=== PATIENT | female | born 1950 | race Caucasian/White ===

== ENCOUNTER → 2016-12-03 | Outpatient (CLI) | payer OTHER | LOC: BMCIMAGING 10:58 | PROVIDERS: ATTEND Family Medicine | DX: M11.251 Other chondrocalcinosis, right hip (principal); M11.252 Other chondrocalcinosis, left hip; M16.0 Bilateral primary osteoarthritis of hip; N20.0 Calculus of kidney ==

== ENCOUNTER 2017-02-24 18:06 | Emergency (ER) | payer OTHER ==
[2017-02-24 18:28] VITALS: BP 140/87; PULSE 69; RESP 18; TEMP 98.2; O2SAT 93
--- NOTE | 2017-02-24 19:12 | EDPHY ---
H & P Time Seen by Provider: 02/24/17 18:42 HPI/ROS: CHIEF COMPLAINT: Blood in urine on Friday HISTORY OF PRESENT ILLNESS: This 66-year-old woman was diagnosed with kidney stones 4 months ago in [place]. She had ultrasound and was told there were additional 3 or 4 stones in her left kidney. When she returned home she had repeat ultrasound and evaluation by her primary care physician Charles Juarez. This past Friday night she had several episodes of blood in her urine with some back pain. More on the left than the right. She presents concerned about possibility of kidney stone or urinary tract infection. She does have also some ongoing back pain which is a bit worse with movement. In review of systems she was using Voltaren gel for arthritis twice a day for the last 3 months but stopped today. She also had vaginal spotting a couple of months ago and then possibly this last . REVIEW OF SYSTEMS: Eye: no change in vision ENT: no sore throat Cardiac: No chest pain Pulmonary: no cough or SOB Abdomen: No vomiting or diarrhea Musculoskeletal: HPI Skin: no rash or easy bruising Neuro: No weakness or numbness in extremities. Constitutional: no fever : HPI A comprehensive 10 point review of systems is otherwise negative aside from elements mentioned in the history of present illness. PAST MEDICAL HISTORY: Kidney stones as noted above. Arthritis. Back pain. Social history: Lives part of the year in [place]. General Appearance: Alert and conversant, cooperative. Ambulatory. Eyes: No scleral icterus. ENT, Mouth: Normal mucous membranes. Respiratory: Normal respiratory effort, breath sounds equal, lungs are clear to auscultation. Cardiovascular: Regular rate and rhythm. Gastrointestinal: Abdomen is soft and non tender. No pulsatile mass. Neurological: Alert and oriented x3. Normally conversant. Face symmetric, normal movement and sensation in all extremities. Not ataxic. Patellar reflexes 2+ symmetric, no clonus. Skin: Warm and dry, no rashes. Musculoskeletal: Mild paraspinal muscle tenderness more on the left than the right in the lumbar region. Psychiatric: Not agitated. Emergency Department course/MDM: I emphasized to the patient with her vaginal spotting at 66 years old she needs to have an endometrial biopsy with her area supervisor Dr. Romero. It is not a procedure I can perform in the emergency department and cannot give her an answer to the question about endometrial cancer tonight. With her hematuria on Friday and normal urine dip here today it is possible that she passed 1 of her 3 or 4 remaining kidney stones on Friday. She does not have evidence of hematuria or infection tonight on her urine dip. We discussed pros and cons of emergency department CT scanning, patient declined imaging. She will follow up with Dr. Juarez her primary care provider within the next 2- 3 weeks for these symptoms and further evaluation. She will call her area supervisor tomorrow to schedule the above procedure this week. Smoking Status: Former smoker Constitutional: Initial Vital Signs Temperature (C) 36.8 C 02/24/17 18:23 Heart Rate 69 02/24/17 18:23 Respiratory Rate 18 02/24/17 18:23 Blood Pressure 140/87 H 02/24/17 18:23 O2 Sat (%) 93 02/24/17 18:23 O2 Delivery Mode Room Air Allergies/Adverse Reactions: No Known Allergies Allergy (Unverified 02/24/17 18:28) Home Medications: Medication Instructions Recorded Diclofenac Sodium [Voltaren Gel 1 katherine TP 02/24/17 (*)] Naproxen Sodium [Aleve 220 MG (*)] 220 mg PO 02/24/17 MDM/Departure - Depart Disposition: Home, Routine, Self-Care Clinical Impression: Vaginal spotting Condition: Good Instructions: Kidney Stones (ED) Additional Instructions: No bladder infection on testing of your urine today. No blood seen on testing of your urine today. Please call doctor Chantal tomorrow and schedule appointment for endometrial biopsy/. Referrals: CHARLES JUAREZ [Primary Care Provider] - As per Instructions RAFAT ROMERO [Retired Resigned] - As per Instructions
== END 2017-02-24 19:15 | disposition home or self-care (01) ==
DX: N93.9 Abnormal uterine and vaginal bleeding, unspecified (principal); Z87.891 Personal history of nicotine dependence

== ENCOUNTER → 2017-08-04 | Outpatient (CLI) | payer OTHER | LOC: BMCIMAGING 12:58 | PROVIDERS: ATTEND Family Medicine | DX: Z12.31 Encounter for screening mammogram for malignant neoplasm of breast (principal) | CPT/HCPCS: G0202 ==

== ENCOUNTER → 2018-02-11 | Outpatient (CLI) | payer OTHER | LOC: BMCIMAGING 13:29 | PROVIDERS: ATTEND Family Medicine | DX: R22.2 Localized swelling, mass and lump, trunk (principal) ==

== ENCOUNTER → 2018-08-13 | Outpatient (CLI) | payer OTHER | LOC: BMCIMAGING 13:18 | PROVIDERS: ATTEND Family Medicine | DX: Z12.31 Encounter for screening mammogram for malignant neoplasm of breast (principal) ==

== ENCOUNTER 2019-02-28 17:00 | Emergency (ER) | payer OTHER ==
--- NOTE | 2019-02-28 17:11 | EDPHY ---
H & P Stated Complaint: dizzy episode today while at work Time Seen by Provider: 02/28/19 17:10 HPI/ROS: CHIEF COMPLAINT: Dizzy HISTORY OF PRESENT ILLNESS: This 68-year-old female in general good health presents concerned about an episode of dizziness that occurred about 2 hr ago. She was at work when she began to feel dizzy and lightheaded. She states that it felt as if her head was "vibrating". This lasted a matter of seconds and resolved. However then she then felt weak. She had to sit down, which is unusual for her. She did not faint or lose consciousness. She feels extremely thirsty and has been drinking water (of note, she ate salty chips and salsa earlier). She went from work to [facility] where she was referred to the emergency department. She expresses concern about her blood pressure, which is higher than usual for her. She has no history of hypertension. REVIEW OF SYSTEMS: A ten system review of systems was performed and is negative with the exception of the items mentioned in the HPI. Past medical history: Negative Past surgical history: Cosmetic surgery Social history: She owns [employer]. She lives part-time in [place]. No tobacco use. Occasional alcohol use. No illicits. General Appearance: Alert. Vital signs reviewed. Blood pressure 156/87. Eyes: Pupils equal and round, no conjunctival injection, no discharge. Anicteric. ENT, Mouth: Mucous membranes are moist, no oropharyngeal erythema or edema. Neck: No lymphadenopathy, supple. Respiratory: Lungs are clear to auscultation; no wheezes, rales, or rhonchi. Cardiovascular: Regular rate and rhythm; no murmur, rub, or gallop. Gastrointestinal: Abdomen is soft and nontender, no masses or organomegaly, bowel sounds normal. Skin: Warm and dry, no rashes on exposed skin, normal color. Back: Nontender to palpation over the thoracolumbar spine. No CVAT. Extremities: No lower extremity edema, no calf tenderness or swelling. Neurological: Alert and oriented. Moving all four extremities easily and equally. Cranial nerves II through XII are examined and are intact (visual acuity not tested). Strength is 5 over 5 bilaterally with testing of all major motor groups. Sensation is intact to light touch over all 4 extremities. Gait is normal. Psychiatric: Normal affect. - Personal History Current Tetanus Diphtheria and Acellular Pertussis (TDAP): Yes - Medical/Surgical History Hx Asthma: No Hx Chronic Respiratory Disease: No Hx Diabetes: No Hx Cardiac Disease: No Hx Renal Disease: No Hx Cirrhosis: No Hx Alcoholism: No Hx HIV/AIDS: No Hx Splenectomy or Spleen Trauma: No Other PMH: arthritis, chronic back pain. kidney stones - Social History Smoking Status: Former smoker Constitutional: Initial Vital Signs Temperature (C) 36.8 C 02/28/19 17:04 Heart Rate 76 02/28/19 17:04 Respiratory Rate 17 02/28/19 17:04 Blood Pressure 156/87 H 02/28/19 17:04 O2 Sat (%) 97 02/28/19 17:04 O2 Delivery Mode Room Air Allergies/Adverse Reactions: No Known Allergies Allergy (Verified 02/28/19 17:03) Home Medications: Medication Instructions Recorded Aleve 02/28/19 Medical Decision Making - Diagnostics EKG Interpretation: 12 lead EKG is interpreted in [place] by emergency department physician. Normal sinus rhythm with no acute ischemic changes. ED Course/Re-evaluation: Episode of dizziness, not positional, and lightheadedness. Now resolved. CBC, BMP, troponin, and EKG reviewed. I have not found a cause for this episode. She is not experiencing chest pain, is not short of breath. Normal troponin. I doubt ACS. EKG with sinus rhythm at 68, no acute ischemic changes. No cardiac arrhythmias noted while in ED. She might be mildly dehydrated with elevated BUN and subjective thirst. Nothing to suggest blood loss. She is worried about stroke, with elevated BP--normal neuro exam--stroke quite unlikely. She recently saw her PCP and had blood drawn. I have asked her to check to see if thyroid studies were done. She will do so. Her blood pressure remained elevated during this ED visit. She will have this followed up by PCP. - Data Points Laboratory Results: Laboratory Results 02/28/19 17:20 02/28/19 17:20 Point of Care Test Results: Chemistry 02/28/19 17:26 POC Troponin I 0.01 ng/mL ng/mL (0.00-0.08) Departure - Departure Disposition: Home, Routine, Self-Care Clinical Impression: Pre-syncope Condition: Good Instructions: Near Syncope (ED), Dizziness (ED) Additional Instructions: I am not sure what happened earlier today the caused you to feel await you did. I have not found evidence of any dangerous or life-threatening condition. Follow up with your primary care physician. As we discussed, make sure that she checked your thyroid last week. If you develop new or concerning symptoms please return for another evaluation. Referrals: EFFIE JACINTO [Primary Care Provider] - As per Instructions
[2019-02-28 17:37] LABS: PLATELET COUNT 226 10^3/uL (150-400)
[2019-02-28 18:33] VITALS: BP 151/98
== END 2019-02-28 18:43 | disposition home or self-care (01) ==
DX: R55 Syncope and collapse (principal); Z87.891 Personal history of nicotine dependence; Z87.442 Personal history of urinary calculi
CPT/HCPCS: 84484-ER